=== PATIENT | female | born 1980 | race Asian ===

== ENCOUNTER → 2018-11-30 | Outpatient (CLI) | payer BC ==
[~2018-11-30] MED LIST: FOLIC ACID; INDERAL 20MG20 MG PO; NO HOME MEDICATIONS; NORCO 325 MG-51 TAB PO; PRENATAL1 TA1 PO
== END ==
LOC: COL.RAD 12:28
DX: E05.90 Thyrotoxicosis, unspecified without thyrotoxic crisis or storm (principal)

== ENCOUNTER 2022-03-14 12:32 | Emergency (ER) | payer BC ==
[~2022-03-14] VITALS: Ht 160 cm; Wt 77.3 kg
[2022-03-14 12:37] VITALS: TEMP 98.4
[2022-03-14 14:04] LABS: BASO # 0.1 K/mm3 (0.0-0.2); BASO % 0.5 % (0.0-2.0); EOS # 0.2 K/mm3 (0.0-0.7); EOS % 1.7 % (0.0-4.0); GRAN # 8.6 K/mm3 (1.4-6.5); GRAN % 74.5 % (42.2-75.2); HEMATOCRIT 40.1 % (37.0-47.0); HEMOGLOBIN 12.6 g/dl (12.5-16.0); LYMPH # 1.6 K/mm3 (1.2-3.4); LYMPH % 13.9 % (20.0-51.0); MEAN CELL VOLUME 91 fl (80.0-100.0); MEAN CORPUSCULAR HEMOGLOBIN 29 pg (27-31); MEAN CORPUSCULAR HGB CONC 31 g/dl (33.0-37.0); MEAN PLATELET VOLUME 11.1 fl (7.4-10.4); MONO # 1.1 K/mm3 (0.1-0.6); MONO % 9.1 % (1.7-9.3); PLATELET COUNT 270 K/mm3 (130-400); RED BLOOD COUNT 4.39 M/mm3 (4.10-5.30); REDCELL DISTRIBUTION WIDTH-CV 13.2 % (11.5-14.5)
[2022-03-14 14:22] LABS: ALBUMIN 4.4 gm/dL (3.5-5.0); ANION GAP 11 mmol/L (7-16); BLOOD UREA NITROGEN 13 mg/dL (7-19); CALCIUM 9.4 mg/dL (8.4-10.2); CARBON DIOXIDE 23 mmol/L (22-29); CHLORIDE 106 mmol/L (98-107); CREATININE, serum 0.82 mg/dL (0.57-1.11); GLUCOSE 128 mg/dL (70-99); MAGNESIUM 2.3 mg/dL (1.6-2.6); PHOSPHOROUS 2.4 mg/dL (2.3-4.7); POTASSIUM 3.5 mmol/L (3.5-4.5); SODIUM 140 mmol/L (136-145)
[2022-03-14 14:30] LABS: TROPONIN-I < 0.010 ng/mL (0.00-0.033)
[2022-03-14 15:30] VITALS: BP 112/61; PULSE 80
== END 2022-03-14 15:40 | disposition home or self-care (01) ==
LOC: COL.ER 12:32
PROVIDERS: Emergency Medicine
DX: R55 Syncope and collapse (principal)
CPT/HCPCS: J7030